=== PATIENT | male | born 1965 | race Hispanic/Latino ===

== ENCOUNTER 2021-01-02 10:41 | Emergency (ER) | payer OTHER ==
--- NOTE | 2021-01-02 11:38 | RAD REPORT ---
EXAM DESCRIPTION: RAD - Tib Fib Right - 01/02/2021 11:30 am CLINICAL HISTORY: Right leg pain FINDINGS: No fracture is seen. No bony abnormality seen
--- NOTE | 2021-01-02 11:45 | ER ---
Nurse's Notes [facility] Name: Kb Giraldo Jr Age: 55 yrs Sex: Male : 1965 Arrival Date: 01/02/2021 Time: 10:43 Bed 9 Private MD: Diagnosis: Laceration without foreign body of lower leg Presentation: 01/02 10:48 Chief complaint: Patient states: "I cut my leg with a machete yesterday and the [place] [facility] sent me here; I was trying to get off an ant pile and the machete bounced off the tree and got me on the leg". Coronavirus screen: At this time, the client does not indicate any symptoms associated with coronavirus-19. Ebola Screen: No symptoms or risks identified at this time. Complicating Factors: There are no complicating factors for this patient. Initial Sepsis Screen: Does the patient meet any 2 criteria? No. Patient's initial sepsis screen is negative. Does the patient have a suspected source of infection? No. Patient's initial sepsis screen is negative. Risk Assessment: Do you want to hurt yourself or someone else? Patient reports no desire to harm self or others. Onset of symptoms was December 2020. 10:48 Acuity: AXEL 4 aa5 10:48 Method Of Arrival: Ambulatory aa5 Triage Assessment: 11:06 General: Appears in no apparent distress. comfortable, Behavior is calm, cooperative. jh5 Pain:. Injury Description: Laceration is clean, not bleeding, was sustained 1 day ago. Historical: - Allergies: 10:50 PENICILLINS; aa5 - PMHx: 10:50 Back problems; aa5 - PSHx: 10:50 None; aa5 - Immunization history:: Last tetanus immunization: < 5 years ago. - Social history:: Smoking status: Patient denies any tobacco usage or history of. Screenin:05 Abuse screen: Denies threats or abuse. Denies injuries from another. Nutritional jh5 screening: No deficits noted. Tuberculosis screening: No symptoms or risk factors identified. Fall Risk None identified. Assessment: 11:07 General: Appears in no apparent distress. comfortable, Behavior is calm, cooperative, jh5 Smells of Reports. Neuro: Level of Consciousness is awake, alert, Oriented to person, place, time, situation. Cardiovascular: Capillary refill < 3 seconds Patient's skin is warm and dry. Respiratory: No deficits noted. Airway is patent is compromised Trachea midline. Musculoskeletal: No deficits noted. Vital Signs: 10:48 BP 129 / 89; Pulse 75; Resp 18 S; Temp 98.0(TE); Pulse Ox 99% on R/A; Weight 81.19 kg aa5 (R); Height 5 ft. 4 in. (162.56 cm) (R); 10:48 Body Mass Index 30.72 (81.19 kg, 162.56 cm) aa5 ED Course: 10:43 Patient arrived in ED. as 10:44 Margarita Thompson FNP-C is [facility]. kb 10:44 Leonel Lopez MD is Attending Physician. kb 10:48 Arm band placed on. aa5 10:49 Triage completed. aa5 11:05 Shelby Reynaga, RN is Primary Nurse. [facility] 11:10 Patient has correct armband on for positive identification. Bed in low position. Call jh5 light in reach. Side rails up X 1. 11:10 No provider procedures requiring assistance completed. Patient did not have IV access [facility] during this emergency room visit. 11:23 X-ray completed. Portable x-ray completed in exam room. Patient tolerated procedure md1 well. 11:30 Tib Fib Right XRAY In Process Unspecified. EDMS Administered Medications: No medications were administered Outcome: 11:45 Discharge ordered by MD. kb 12:13 Discharged to home [facility] 12:13 Condition: good 12:13 Discharge instructions given to patient, family, Instructed on discharge instructions, follow up and referral plans. medication usage, safety practices, Demonstrated understanding of instructions, follow-up care, medications, Prescriptions given X 1. 12:13 Patient left the ED. 5 Signatures: Dispatcher [employer] EDMS Margarita Thompson FNP-C FNP-Ckb Martinez, Amelia as Calderon, Audri, RN RN 5 Becca Terrazas md1 Shelby Reynaga, RN RN 5 Corrections: (The following items were deleted from the chart) 10:51 10:48 BP 129 / 89; Pulse 75bpm; Resp 18bpm; Spontaneous; Pulse Ox 99% RA; Temp 98.0F aa5 Temporal; aa5
--- NOTE | 2021-01-02 11:45 | EDPHYS ---
Physician Documentation [facility] Name: Kb Giraldo Jr Age: 55 yrs Sex: Male : 1965 Arrival Date: 01/02/2021 Time: 10:43 Bed 9 Private MD: ED Physician Leonel Lopez HPI: 01/02 11:58 This 55 yrs old Male presents to ER via Ambulatory with complaints of kb Laceration To Leg. 11:58 The patient has a laceration related to: doing yard work. Accidentally cut leg with kb snehal yesterday. [facility]. Laceration approx 2cm in length and well approximated. Pt cleaned and dressed it after it happened. . 13:26 The laceration(s) is(are) located on the right ramos. Onset: The symptoms/episode kb began/occurred yesterday. Associated signs and symptoms: The patient has no apparent associated signs or symptoms. The patient has not experienced similar symptoms in the past. The patient has not recently seen a physician. Historical: - Allergies: 10:50 PENICILLINS; aa5 - PMHx: 10:50 Back problems; aa5 - PSHx: 10:50 None; aa5 - Immunization history:: Last tetanus immunization: < 5 years ago. - Social history:: Smoking status: Patient denies any tobacco usage or history of. ROS: 13:26 Constitutional: Negative for fever, chills, and weight loss. kb 13:26 Skin: Positive for laceration(s), of the right ramos. 13:26 All other systems are negative. Exam: 13:26 Constitutional: This is a well developed, well nourished patient who is awake, alert, kb and in no acute distress. Head/Face: Normocephalic, atraumatic. ENT: Moist Mucous membranes Respiratory: Respirations even and unlabored. No increased work of breathing, no retractions or nasal flaring. MS/ Extremity: Pulses equal, no cyanosis. Neurovascular intact. Full, normal range of motion. Neuro: Awake and alert, GCS 15, oriented to person, place, time, and situation. Moves all extremities. Normal gait. Psych: Awake, alert, with orientation to person, place and time. Behavior, mood, and affect are within normal limits. 13:26 Skin: injury, laceration(s), the wound is approximately 2 cm(s), of the right ramos, that can be described as clean, no foreign body, linear, without bleeding. Vital Signs: 10:48 BP 129 / 89; Pulse 75; Resp 18 S; Temp 98.0(TE); Pulse Ox 99% on R/A; Weight 81.19 kg aa5 (R); Height 5 ft. 4 in. (162.56 cm) (R); 10:48 Body Mass Index 30.72 (81.19 kg, 162.56 cm) aa5 MDM: 10:51 Patient medically screened. kb 13:26 Data reviewed: vital signs, nurses notes. Data interpreted: Pulse oximetry: on room air kb is 99 %. Interpretation: normal. Counseling: I had a detailed discussion with the patient and/or guardian regarding: the historical points, exam findings, and any diagnostic results supporting the discharge/admit diagnosis, radiology results, the need for outpatient follow up, a family practitioner, to return to the emergency department if symptoms worsen or persist or if there are any questions or concerns that arise at home. 01/02 10:50 Order name: Tib Fib Right XRAY; Complete Time: 11:43 kb Administered Medications: No medications were administered Disposition: 01/03 09:06 Co-signature as Attending Physician, Leonel Lopez MD I agree with the assessment and sp3 plan of care. Disposition Summary: 01/02/21 11:45 Discharge Ordered Location: Home kb Condition: Stable kb Diagnosis - Laceration without foreign body of lower leg kb Followup: kb - With: Emergency Department - When: As needed - Reason: Worsening of condition Followup: kb - With: Private Physician - When: 2 - 3 days - Reason: Recheck today's complaints, Continuance of care, Re-evaluation by your physician Discharge Instructions: - Discharge Summary Sheet kb - Laceration Care, Adult, [id number] kb Forms: - Medication Reconciliation Form kb - Thank You Letter kb - Antibiotic Education kb - Prescription Opioid Use kb Prescriptions: - Bactrim DS 800-160 mg Oral Tablet - take 1 tablet by ORAL route every 12 hours for 7 days; 14 tablet; Refills: 0, kb Product Selection Permitted Signatures: Dispatcher [employer] Margarita Ann FNP-C FNP-Ckb Calderon, Medina, RN RN aa5 Leonel Lopez, MD sp3
[2021-01-02 12:19] VITALS: BP 129/89; TEMP 98; O2SAT 99
--- OUTSIDE RECORDS SUMMARY | 2021-01-07 16:20 | XMS REPORT | Continuity of Care Document ---
:1965 Author Organization [facility] t Address [address] [place] [address] [address] [place] [address] Care Team Providers Name Role Phone Pcp, Does Not Have A Primary Care Physician Therapy, Covid Infusion Attending Clinician Unavailable Unknown Attending Clinician Unavailable UNKNOWN Attending Clinician Unavailable Doctor Unassigned, Name Attending Clinician Unavailable Syeda BENJAMIN T Attending Clinician Unavailable Pcp, Does Not Have A Attending Clinician Payers Payer Name Policy Type Policy Number Effective Date Expiration Date Kendal MORALES [id number] 2020 00:00:00 Problems This patient has no known problems. Allergies, Adverse Reactions, Alerts Allergy Allergy Status Severity Reaction(s) Onset Inactive Treating Comm ents Source Name Type Date Date Clinician Penicill Propensi Active Other - See Closes U nivers ins ty to comments 8-28 airway ity of adverse 00:00: [place] reaction 00 [facility] PENICILL Drug Active Other-Cmnt Univ ers INS Class 8-28 ity of 00:00: [place] 00 [facility] Branch NO KNOWN Drug Active Univers ALLERGIE Class ity of S [facility] Social History Social Habit Start Date Stop Date Quantity Comments Source Sex Assigned At [birth year] [facility] 00:00:00 00:00:00 Medical [facility] Smoking Status Start Date Stop Date Source Unknown if ever smoked [facility] Medications This patient has no known medications. Vital Signs Vital Name Observation Time Observation Value Comments Source Systolic blood 2020-10-22 17:23:00 118 mm[Hg] Univer sity of pressure [facility] Diastolic blood 2020-10-22 17:23:00 69 mm[Hg] Unive rsity of pressure [facility] Heart rate 2020-10-22 17:23:00 96 /min [facility] Body temperature 2020-10-22 17:23:00 37.39 [facility] Respiratory rate 2020-10-22 17:23:00 24 /min [facility] Oxygen saturation in 2020-10-22 17:23:00 93 /min [facility] Arterial blood by [facility] Pulse oximetry [facility] Body height 2020-10-22 16:37:00 165.1 cm [facility] Body weight 2020-10-22 16:37:00 77.111 kg [facility] BMI 2020-10-22 16:37:00 28.29 kg/m2 [facility] Procedures Procedure Date / Time Performed Performing Clinician Sourc e [id number] CONSENT 2020-10-22 05:01:00 [facility] Unadeja[facility] Start End Encounter Admission Attending Care Care Encounter Source Date/Time Date/Time Type Type Clinicians Facility Department ID 2020-10-22 2020-10-22 Nurse Therapy, Adc Covid Infusion [facility] [id number] Univers 11:04:47 12:04:47 Visit Unknown, Attending Dimitry [id number] ity [facility] [id number] [place] [phone] [facility] 053 Branch 2020-10-22 2020-10-22 Outpatient [facility] [id number] Univers 10:00:00 10:00:[id number] [facility] 2020-10-22 2020-10-22 Outpatient R UNKNOWN, [facility] [id number] Univers 10:00:00 10:00:00 ATTENDING ity [facility] 2020-10-22 2020-10-22 Orders Doctor LYNCH [id number] Univers 00:00:00 00:00:00 Only Unassigned, AMILCAR [id number] ity of [facility] [id number] Ezekiel as [phone] [facility] 009 [facility] 2020-10-18 2020-10-18 Letter SYED Landa [id number] Univers 00:00:00 00:00:00 (Out) Romana Viera AMILCAR [id number] it y of HOSPITAL [id number] Ezekiel as [phone] [facility] 019 [facility] 2020-10-18 2020-10-18 Telephone PcpSYED [id number] Univers 00:00:00 00:00:00 Patient AMILCAR [id number] it y of [id number] [phone] [facility] 019 [facility] 2020-10-16 2020-10-16 Outpatient R UNKNOWN, [facility] [id number] Univers 15:15:00 15:15:00 ATTENDING y [facility] [facility] 2020-10-16 2020-10-16 Letter Doctor SYED [id number] Univers 00:00:00 00:00:00 (Out) Unassigned, AMILCAR [id number] [facility] of [facility] [id number] Ezekiel as [phone] [facility] [address]44 [facility] 2020-10-16 2020-10-16 Letter Doctor SYED [id number] Univers 00:00:00 00:00:00 (Out) Unassigned, AMILCAR [id number] [facility] of [place] [id number] Ezekiel as [phone] [address] 2020-10-11 2020-10-11 Outpatient R [facility] [id number] Univers 14:00:00 14:00:00 [id number] [facility] Results This patient has no known results.
== END 2021-01-02 12:13 | disposition home or self-care (01) ==
LOC: ER 10:41
DX: S81.811A Laceration without foreign body, right lower leg, initial encounter (principal); W26.0XXA Contact with knife, initial encounter; Y93.89 Activity, other specified; Z88.0 Allergy status to penicillin
CPT/HCPCS: 99283